=== PATIENT | female | born 1980 | race Caucasian/White ===

== ENCOUNTER → 2022-01-15 | Outpatient (CLI) | payer MEDICARE | END | disposition home or self-care (01) | LOC: RESCLI 12:45 | PROVIDERS: ATTEND Internal Medicine | DX: T63.441A Toxic effect of venom of bees, accidental (unintentional), initial encounter (principal); G47.10 Hypersomnia, unspecified; J45.909 Unspecified asthma, uncomplicated; G47.00 Insomnia, unspecified; M79.7 Fibromyalgia; I10 Essential (primary) hypertension; K59.00 Constipation, unspecified; R11.0 Nausea; M06.9 Rheumatoid arthritis, unspecified; E03.9 Hypothyroidism, unspecified; R21 Rash and other nonspecific skin eruption; K21.9 Gastro-esophageal reflux disease without esophagitis; E78.5 Hyperlipidemia, unspecified; F32.9 Major depressive disorder, single episode, unspecified; N95.8 Other specified menopausal and perimenopausal disorders; E55.9 Vitamin D deficiency, unspecified; Z86.73 Personal history of transient ischemic attack (TIA), and cerebral infarction without residual deficits; Z88.8 Allergy status to other drugs, medicaments and biological substances; Z91.048 Other nonmedicinal substance allergy status; Z88.0 Allergy status to penicillin; Z88.1 Allergy status to other antibiotic agents; Z90.710 Acquired absence of both cervix and uterus; Z98.890 Other specified postprocedural states; Z82.49 Family history of ischemic heart disease and other diseases of the circulatory system; Z72.89 Other problems related to lifestyle; Z79.82 Long term (current) use of aspirin; Z79.899 Other long term (current) drug therapy; Y92.89 Other specified places as the place of occurrence of the external cause ==